=== PATIENT | female | born 1985 | race Caucasian/White ===

== ENCOUNTER → 2019-08-24 | Outpatient (CLI) | payer MEDICAID ==
[~2019-08-24] MED LIST: Docusate Sodium PO; FAMO10TA43 PO; GLYB2.5T4 PO; Hydrocodone Bit/Acetaminophen PO; Ibuprofen PO; Labetalol Hcl PO; PREN1TAB25 PO
--- NOTE | 2019-08-24 11:14 | Diagnostic Imaging Report ---
INDICATION: survey. TECHNIQUE: Multiple real-time grayscale images were obtained over the gravid uterus. COMPARISON: None FINDINGS: There is a single live fetus in a cephalic presentation. heart rate was recorded at 136 BPM. Placenta is anterior. Amniotic fluid volume is normal. Cervical length is 3.8 cm. kidneys, bladder and stomach are unremarkable. brain is unremarkable. There is a three-vessel cord with normal insertion. The four-chamber heart view and spine were limited in evaluation due to position. Biometrical measurements are as follows: Biparietal 4.96 cm, age 21 weeks 1 days. Head circumference 18.90 cm, age 21 weeks 2 days. Abdominal circumference 16.10 cm, age 21 weeks 2 days. Femur length 3.42 cm, age 20 weeks 6 days. Sonographic estimate age: 21 weeks 1 days. Sonographic estimated date of delivery: 01/03/2020. Estimated Weight: 393 gm (+/- 57 gm). LMP percentile: 62%. heart rate: 136 beats per minute. number: 1 of 1. IMPRESSION: Single live IUP 21 weeks 1 day gestational age with an estimated date of confinement sonographically of 01/03/2020. survey is unremarkable although the spine and four-chamber heart view are limited due to position. Dictated by: Dictated on workstation # [id number]
== END ==
LOC: RAD 09:49
PROVIDERS: ATTEND Obstetrics & Gynecology
DX: Z36.9 Encounter for antenatal screening, unspecified (principal); Z3A.21 21 weeks gestation of pregnancy
CPT/HCPCS: 76805

== ENCOUNTER 2019-12-19 09:06 | Outpatient (RCR) | payer MEDICAID ==
[~2019-12-19] VITALS: Ht 162.6 cm; Wt 136.4 kg
[~2019-12-19 09:06] MED LIST changes: +FAMO40TA6 PO; +FERR325T5 PO; +GLYB5TAB6 PO; +PREN-53 PO
== END 2019-12-19 15:48 | disposition home or self-care (01) ==
LOC: PREOP 09:06
PROVIDERS: ATTEND Obstetrics & Gynecology
DX: Z01.818 Encounter for other preprocedural examination (principal); Z11.59 Encounter for screening for other viral diseases
CPT/HCPCS: 87635

== ENCOUNTER 2019-12-22 04:22 | Inpatient (IN) | payer BC, MEDICAID ==
[~2019-12-22] VITALS: Ht 162.6 cm; Wt 138.5 kg
[2019-12-22] VITALS (12 sets, daily range): BP systolic 127–160; BP diastolic 79–100
[~2019-12-22 04:22] MED LIST changes: +CITRIC ACID/SOB CIT (BICITRA) 30 ML UDC ONE; +FAMOTIDINE 20MG/2ML IV (PEPCID) ONE; +METOCLOPRAMIDE INJ 10 MG/2 ML (REGLAN) ONE; +ceFAZolin 2 GM IV Premixed 50 ML ONE
[2019-12-22] MEDS ORDERED: LACTATED RINGERS 1,000 ML IV PRN (05:58)
[2019-12-22] MEDS ORDERED: ceFAZolin 2 GM IV Premixed 50 ML IV ONE (06:00)
[2019-12-22] MEDS ORDERED: CATHETER FLUSH 10 ML SYR IV PRN (06:00)
[2019-12-22] MEDS ORDERED: CITRIC ACID/SOB CIT (BICITRA) 30 ML UDC PO ONE (06:00)
[2019-12-22] MEDS ORDERED: FAMOTIDINE 20MG/2ML IV (PEPCID) IV ONE (06:00)
[2019-12-22] MEDS ORDERED: METOCLOPRAMIDE INJ 10 MG/2 ML (REGLAN) IV ONE (06:00)
--- NOTE | 2019-12-22 06:00 | NUR ---
CAROL MANUEL presented to unit via ambulatory from ED, accompanied by s/o, with c/o PREVIOUS. CAROL MANUEL weighed, gowned, voided, and to bed. EFHM and TOCO applied, VS taken. CAROL MANUEL oriented to bed controls, call light, TV, heat, and A/C controls.
[2019-12-22] MEDS: LACTATED RINGERS 1,000 ML IV PRN ×2 (06:20→07:25)
--- OUTSIDE RECORDS SUMMARY | 2019-12-22 06:36 | XMS REPORT ---
Author Author Greta JEAN [facility] Address [address] [place] [address] Care Team Providers Care Arts Manager Name Role Phone CODEY JEAN Unavailable PROBLEMS Type Condition ICD9-CM Code [id number] Code Onset Dates Condition S tatus SNOMED Code Problem Streptococcal sore throat 034.0 Acti ve 90892801 Problem Carpal tunnel syndrome 354.0 Active 62965379 Problem Polydipsia 783.5 Active 49504540 Problem Urinary frequency 788.41 Active 16 9906549 Problem Other specified visual disturbances 368.8 Active 85085466 Problem Disturbance of skin sensation 782.0 Active [id number] ALLERGIES No Known Allergies ENCOUNTERS Encounter Location Date Diagnosis [facility] [address] [id number] [address] [place] [phone] November, Sore throat J02.9 and Strep throat J02.0 [facility] [id number] [place] [phone] Mar, [facility] [address] [place] [phone] Mar, [facility] [address] [id number] [address] [place] [phone] Jul, IMMUNIZATIONS Vaccine Route Administration Date Status BICILLIN LA/PENICILLIN G BENZATHINE IM Intramuscular December 14 8 Administered SOCIAL HISTORY Never Assessed REASON FOR VISIT sore throat and tired. denies cough. [email or web address] PLAN OF CARE Activity Details Follow Up prn Reason: VITAL SIGNS Height 64 in 2017-12-14 Weight 253.4 lbs 2017-12-14 Temperature 97.4 degrees Fahrenheit 2017-12-14 Heart Rate 88 bpm 2017-12-14 Respiratory Rate 20 2017-12-14 BMI 43.49 kg/m2 2017-12-14 Blood pressure systolic 130 mmHg 2017-12-14 Blood pressure diastolic 80 mmHg 2017-12-14 MEDICATIONS Medication Instructions Dosage Frequency Start Date End Date Duration S tatus Magic Mouthwash buccal 6 times a day 5 ml gargle and spit or swollo w 4h November, November, 3 days Active RESULTS Name Result Date Reference Range STREP A (IN HOUSE) 2017-12-14 STREP A positive Control + Lot # [id number] Exp date 04 11 2020 PROCEDURES Procedure Date Ordered Result Body Site STREP A ASSAY W/OPTIC December 14, 2017 THER/PROPH/DIAG INJ, SC/IM December 14, 2017 BICILLIN LA/PENICILLIN G BENZATHINE December 14, 2017 INSTRUCTIONS MEDICATIONS ADMINISTERED No Known Medications
--- OUTSIDE RECORDS SUMMARY | 2019-12-22 06:36 | XMS REPORT ---
Author Author Greta MARION [facility] Address [address] [place] [address] Care Team Providers Care Bus System Operator Name Role Phone SANAM CHANG Unavailable PROBLEMS Type Condition ICD9-CM Code [id number] Code Onset Dates Condition S tatus SNOMED Code Problem Carpal tunnel syndrome 354.0 Active 02587840 Problem Streptococcal sore throat 034.0 Acti ve 79850458 Problem Urinary frequency 788.41 Active 16 7517341 Problem Polydipsia 783.5 Active 55496849 Problem Disturbance of skin sensation 782.0 Active 303884705 Problem Other specified visual disturbances 368.8 Active [id number] ALLERGIES No Information ENCOUNTERS Encounter Location Date Diagnosis [facility] [address] [place] [phone] November, Strep pharyngitis J02.0 ; Mo rbid obesity E66.01 and Sore throat J02.9 [facility] [address] [id number] [place] [phone] November, Sore throat J02.9 and Strep throat J02.0 [facility] [address] [place] [phone] Mar, [facility] [id number] [place] [phone] Mar, [facility] [id number] [place] [phone] Jul, IMMUNIZATIONS No Known Immunizations SOCIAL HISTORY Never Assessed REASON FOR VISIT PLAN OF CARE VITAL SIGNS Height 64 in 2014-03-30 Weight 209.5 lbs 2014-03-30 Temperature 100.6 degrees Fahrenheit 2014-03-30 Heart Rate 99 bpm 2014-03-30 Respiratory Rate 18 2014-03-30 Blood pressure systolic 138 mmHg 2014-03-30 Blood pressure diastolic 90 mmHg 2014-03-30 MEDICATIONS No Known Medications RESULTS No Results PROCEDURES Procedure Date Ordered Result Body Site INJECTION PCN G KIMBERLI [id number] UNITS Mar 30, 2014 THER/PROPH/DIAG INJ, SC/IM Mar 30, 2014 STREP A ASSAY W/OPTIC Mar 30, 2014 INSTRUCTIONS MEDICATIONS ADMINISTERED No Known Medications MEDICAL (GENERAL) HISTORY Type Description Date Surgical History section
--- OUTSIDE RECORDS SUMMARY | 2019-12-22 06:36 | XMS REPORT | Continuity of Care Document ---
Author Organization Unknown Address Unknown Phone Unavailable Allergies Active Description Code Type Severity Reaction Onset Reported/Identified Relationship to Patient Clinical Status Yes No Known Drug Allergies [id number] Drug Allergy Unknown N/A 10/15/2010 Medications There is no data. Problems Date Dx Coded Attending Type Code Diagnosis Diagnosed By 10/15/2010 Ot 401.9 10/15/2010 Ot 490 10/15/2010 Ot 511.0 10/15/2010 Ot 786.50 04/17/2011 461.9 SINU SITIS ACUTE 04/17/2011 466.0 BRON CHITIS, ACUTE 04/17/2011 V65.42 COU NSELING - SMOKING CESSATION 04/17/2011 CHANG MARION APRN R 461.9 SINUSITIS ACUTE 04/17/2011 CHANG MARION APRN R 466.0 BRONCHITIS, ACUTE 04/17/2011 CHANG MARION APRN R V65.42 COUNSELING - SMOKING CESSATION 08/19/2012 354.0 CARP AL TUNNEL SYNDROME 08/19/2012 368.8 OTHE R SPECIFIED VISUAL DISTURBANCES 08/19/2012 782.0 DIST URBANCE OF SKIN SENSATION 08/19/2012 783.5 POLY DIPSIA 08/19/2012 788.41 URI NARY FREQUENCY 08/19/2012 CHANG MARION APRN R 354.0 CARPAL TUNNEL SYNDROME 08/19/2012 CHANG MARION APRN R 368.8 OTHER SPECIFIED VISUAL DISTURBANCES 08/19/2012 CHANG MARION APRN R 782.0 DISTURBANCE OF SKIN SENSATION 08/19/2012 ANSON MARION APRNIA R 783.5 POLYDIPSIA 08/19/2012 ANSON MARION APRNIA R 788.41 URINARY FREQUENCY 03/30/2014 CHANG MARION APRN R 034.0 STREP THROAT 08/25/2014 KRISTOFER CHRISTENSEN ROLLER INSPECTOR AND MENDER Ot 256.4 08/25/2014 KRISTOFER CHRISTENSEN ROLLER INSPECTOR AND MENDER Ot 648.93 08/25/2014 KRISTOFER CHRISTENSEN ROLLER INSPECTOR AND MENDER Ot 789.03 11/20/2014 KRISTOFER CHRISTENSEN ROLLER INSPECTOR AND MENDER Ot 256.4 11/20/2014 KRISTOFER CHRISTENSEN ROLLER INSPECTOR AND MENDER Ot 648.93 11/20/2014 KRISTOFER CHRISTENSEN ROLLER INSPECTOR AND MENDER Ot 789.03 11/20/2014 KRISTOFER CHRISTENSEN A ROLLER INSPECTOR AND MENDER Ot 256.4 11/20/2014 KRISTOFER CHRISTENSEN ROLLER INSPECTOR AND MENDER Ot 648.93 11/20/2014 KRISTOFER CHRISTENSEN ROLLER INSPECTOR AND MENDER Ot 789.03 12/14/2014 KRISTOFER CHRISTENSEN ROLLER INSPECTOR AND MENDER Ot 256.4 12/14/2014 KRISTOFER CHRISTENSEN ROLLER INSPECTOR AND MENDER Ot 648.93 12/14/2014 KRISTOFER CHRISTENSEN ROLLER INSPECTOR AND MENDER Ot 789.03 12/21/2014 KRISTOFER CHRISTENSEN ROLLER INSPECTOR AND MENDER Ot 256.4 12/21/2014 KRISTOFER CHRISTENSEN ROLLER INSPECTOR AND MENDER Ot 648.93 12/21/2014 KRISTOFER CHRISTENSEN ROLLER INSPECTOR AND MENDER Ot 789.03 01/01/2015 LINDA DOKAMRYN Ot 278.00 01/01/2015 FENECH DOKAMRYN Ot 649.13 01/01/2015 FENECH DOKAMRYN Ot 278.00 01/01/2015 FENECH DOKAMRYN Ot 649.13 01/07/2015 CHRISTENSENKRISTOFER BRIGHT ROLLER INSPECTOR AND MENDER Ot 256.4 01/07/2015 KRISTOFER CHRISTENSEN ROLLER INSPECTOR AND MENDER Ot 648.93 01/07/2015 KRISTOFER CHRISTENSEN ROLLER INSPECTOR AND MENDER Ot 789.03 01/15/2015 FENECH DOKAMRYN Ot 278.00 01/15/2015 FENECH DOKAMRYN Ot 649.13 02/26/2015 FENECH DOKAMRYN Ot 278.00 02/26/2015 FENECH DOKAMRYN Ot 649.13 03/02/2015 THIERRYECH KAMRYN MELCHOR Ot 278.01 MORBID OBESITY 03/02/2015 THIERRYECH KAMRYN MELCHOR Ot 642.61 ECLAMPSIA-DELIVERED 03/02/2015 THIERRYECH KAMRYN MELCHOR Ot 648.81 ABN GLUCOSE JEREMIAH-DELIV 03/02/2015 THIERRYECH DOKAMRYN Ot 649.11 OBESITY COMP PREG/CHILDBIRTH/PUERPERIUM, 03/02/2015 FENKAMRYN LITTLE DO Ot 653.41 FETOPELV DISPROPOR-DELIV 03/02/2015 KAMRYN MCKEON DO Ot 656.61 EXCESS GRTH-DELIV 03/02/2015 KAMRYN MCKEON DO Ot 660.11 BONY PELV OBSTRUCT-DELIV 03/02/2015 THIERRYSIDNEY KAMRYN MELCHOR Ot V06.1 [id number], COMBINED [ 03/02/2015 KAMRYN MCKEON DO Ot V27.0 DELIVER-SINGLE LIVEBORN 03/02/2015 LINDA MELCHOR, KAMRYN Aceves Ot V85.43 BODY MASS INDEX 50.0-59.9, ADULT 07/02/2019 KAMRYN MCKEON DO Ot 278.00 OBESITY, NOS 07/02/2019 THIERRYECH DOKAMRYN Ot 649.13 OBESITY COMP PREG/CHILDBIRTH/PUERPERIUM, 08/24/2019 THIERRYECH KAMRYN MELCHOR Ot 278.00 OBESITY, NOS 08/24/2019 THIERRYECH DO, KAMRYN Aceves Ot 649.13 OBESITY COMP PREG/CHILDBIRTH/PUERPERIUM, 08/25/2019 THIERRYECH DO, KAMRYN Aceves Ot Z36.9 ENCOUNTER FOR SCREENING, UNSPE 08/25/2019 THIERRYECH DO, KAMRYN Aceves Ot Z3A.21 21 WEEKS GESTATION OF 08/26/2019 THIERRYECH DO, KAMRYN S Ot Z36.9 ENCOUNTER FOR SCREENING, UNSPE 08/26/2019 THIERRYECH DO, KAMRYN Aceves Ot Z3A.21 21 WEEKS GESTATION OF 08/29/2019 THIERRYECH DOKAMRYN Ot Z36.9 ENCOUNTER FOR SCREENING, UNSPE 08/29/2019 THIERRYECH DOKAMRYN Ot Z3A.21 21 WEEKS GESTATION OF 08/29/2019 THIERRYECH DO, KAMRYN S Ot Z36.9 ENCOUNTER FOR SCREENING, UNSPE 08/29/2019 FENECH DO, KAMRYN S Ot Z3A.21 21 WEEKS GESTATION OF 08/29/2019 FENECH DO, KAMRYN S Ot Z36.9 ENCOUNTER FOR SCREENING, UNSPE 08/29/2019 THIERRYECH DO, KAMRYN S Ot Z3A.21 21 WEEKS GESTATION OF Procedures Code Description [place] [address] A1C (IN-HOUSE) 08/19/2012 25201 STRE P A (IN-HOUSE) 03/30/2014 62753 THER APUTIC INJ SQ/IM 03/30/2014 J0561 BICI LLIN LA/PENICILLIN G BENZATHINE INJ 03/30/2014 73.4 MEDIC AL INDUCTION LABOR 02/26/2015 74.1 LOW C ERVICAL 02/27/2015 Results Test Result Range Coronavirus SARS-CoV-2 SO 2018 - 0 13:10 Coronavirus Ab [Units/volume] in Serum Negative Negative Encounters ACCT No. Visit Date/Time Discharge Status Pt. Type Provider Facility Loc./Unit Complaint [id number] 12/21/2018 15:10:00 12/21/2018 23:59:5 9 CLS Outpatient [facility] [id number] 12/19/2019 09:06:00 020 15:48:00 DIS Outpatient KAMRYN MCKEON DO [facility] PREOP PREVIOUS [id number] 08/24/2019 09:49:00 020 23:59:59 CLS Outpatient KAMRYN MCKEON DO [facility] RAD [id number] 06/27/2019 13:49:00 019 23:59:59 CLS Preadmit SALTY FONTAINE MD [facility] CARD HTN [id number] 02/26/2015 11:00:00 015 17:25:00 DIS Inpatient KAMRYN MCKEON DO [facility] LDRP INDUCTION HTN,PROTEIN I N URINE [id number] 12/21/2014 15:16:00 015 23:59:59 CLS Outpatient KAMRYN MCKEON DO [facility] RAD INCOMPLETE VIEWS [id number] 07/30/2014 13:19:00 015 23:59:59 CLS Outpatient KRISTOFER CHRISTENSEN [facility] RAD [id number] 12/22/2019 07:30:00 P EN Preadmit KAMRYN MCKEON DO PREVIOUS [id number] 10/15/2010 18:31:00 Document Registration [id number] 03/30/2014 12:14:00 03/30/2014 23:59: 59 CLS Outpatient CHANG MARION APRN [id number] 08/19/2012 15:09:00 08/19/2012 23:59: 59 [facility] Outpatient
--- OUTSIDE RECORDS SUMMARY | 2019-12-22 06:36 | XMS REPORT ---
Author Author StumbleUpon sweatband drummer [facility] [employer] banner [facility] Address [address] [address] Care Team Providers Care Data Warehouse Administrator Name Role Phone ALICE FIELDS Justine Unavailable CODEY JEAN Unavailable CHANG MARION Unavailable PCP, NONE Unavailable Unavailable KAMRYN GRAF DO Unavailable Unavailable KAMRYN GRAF DO Unavailable Unavailable DO Ketan GRAF PCP Unavailable Unavailable Unavailable Unavailable Unavailable Unavailable Unavailable Unavailable Unavailable Unavailable Allergies The data below is from unstructured sources Allergen Type Severity Reaction Status Last Updated No Known Drug Allergies Active 10/15/10 No known allergies. Medications Current Medications Medication Ingredient Drug Dose Dates Status Sig Sig Care Class(es) (Normalized) (Original) Provid er ferrous ferrous no Active no Ferrous no sulfate 325 sulfate information information Sulfate name mg delayed Active 325 release ORAL Daily oral tablet (1 source.) no Ukt056/Iron no Active no Xmp887/Iron no information Fumarate/Fa information information Fumarate/Fa/ name (1 source.) /Dss Dss Active 1 ORAL Daily Completed/Discontinued Medications Medication Ingredient Drug Dose Dates Status Sig Sig Care Class(es) (Normalized) (Original) Provid er no Docusate no 02-29-20 Complete no Docusate no information information 15 - d information Sodium name (1 source.) 12-14-19 Discontinued 20 100 ORAL Twice A Day as needed for Constipation 40 February 28, 2015 7:12am December 14, 2019 no Hydrocodone no 02-29-20 Complete no Hydrocodone n o information Bit/Acetami information 15 - d information Bi t/Acetamin name (1 source.) nophen 12-14-19 ophen 20 Discontinued 1-2 ORAL Every 6 Hours as needed for Pain 50 February 28, 2015 7:12am December 14, 2019 Problems Problem Normalized Date Last Normalized Normalized Provider Fa cility Classification Problem(s) Recorded Problem Problem Sta tus Duration Residual 21 weeks Episodic Active KAMRYN GRAF [facility] Via codes; gestation of , DO [facility] unclassified Hospital - (5 sources.) [place] ([id number]) Diabetes or Abnormal Episodic Active KAMRYN LINDA [facility] Vi a abnormal glucose , DO [facility] glucose tolerance of Hospital - tolerance mother, [place] complicating delivered, ([address]96) ; with or childbirth; or without the puerperium mention of (3 sources.) antepartum condition Translations: [ Gestational diabetes mellitus (GDM)] Other Body Mass Chronic Active KAMRYN FENSIDNEY [facility] Via nutritional; Index , DO [facility] endocrine; and 50.0-59.9, Hospital - metabolic adult [place] disorders (2 (28947) sources.) Hypertension Eclampsia, Episodic Active KAMRYN GRAF [facility] Via complicating delivered, , DO [facility] ; with or Hospital - childbirth and without [place] the puerperium mention of (52859) (2 sources.) antepartum condition Other Encounter for Episodic Active KAMRYN GRAF [facility] Via screening for , DO [facility] suspected screening, Hospital - conditions unspecified [place] (not mental (53830) disorders or infectious disease) (5 sources.) Other Excessive Episodic Active KAMRYN GRAF [facility] Via complications growth, , DO [facility] of affecting Hospital - (2 sources.) management of [place] mother, ([address]) delivered, with or without mention of antepartum condition Residual H/O: Episodic Active DO KAMRYN Phelpsi on Via codes; section [place] [id number] [facility] unclassified (Work Phone: Hospital (1 source.) ([phone]) ) Other Morbid Chronic Active CHANG [facility] nutritional; (severe) SANAM [address] [place] [address] endocrine; and obesity due to of [facility] metabolic excess [place] ([address]) disorders (1 calories source.) Translations: [ - Morbid obesity E66.01] Other Morbid obesity Chronic Active KAMRYN GRAF [facility] Via nutritional; , DO [facility] endocrine; and Hospital - metabolic [place] disorders (2 (48880) sources.) Immunizations Need for 12-20-2019 - Episodic Active KAMRYN FE NECH [facility] Via and screening prophylactic , DO [place] for infectious vaccination Hospital - disease (3 and [place] sources.) inoculation (60746) against diphtheria-tet anus-pertussis , combined [DTP] [DTaP] Translations: [ ENCOUNTER FOR SCREENING FOR OTHER VIRAL ] Other Obesity Chronic Active KAMRYN FENECH [facility] Via complications complicating , DO [facility] of , Hospital - (2 sources.) childbirth, or [place] the (80775) puerperium, antepartum condition or complication Other Obesity Chronic Active KAMRYN FENECH [facility] Via complications complicating , DO [facility] of ; , Hospital - puerperium childbirth, or [place] affecting the (15804) management of puerperium, mother (2 delivered, sources.) with or without mention of antepartum condition Other Obesity, Chronic Active KAMRYN FENECH [facility] Via nutritional; unspecified , DO [facility] endocrine; and Hospital - metabolic [place] disorders (2 (01781) sources.) Fetopelvic Obstruction by Episodic Active KAMRYN FENECH [facility] Via disproportion; bony pelvis , DO [facility] obstruction (4 during labor, Hospital - sources.) delivered, [place] with or (56775) without mention of antepartum condition Translations: [ FETOPELV DISPROPOR-DELI V] Other Outcome of Episodic Active KAMRYN FENECH [facility] Vi a and delivery, , DO [facility] delivery single Hospital - including liveborn [place] normal (2 (29400) sources.) Procedures Procedure Normalized Procedure Procedure Result Performer Facility Date 03-30-2014 [place] no information no name [facility] ealt streptococcus group a [facility] ([id number]) 02-27-2015 Low cervical no information no name [facility] section [facility] ([id number]) 02-26-2015 Medical induction of no information no name [facility] Via [facility] labor [facility] ([id number]) 03-30-2014 Penicillin g no information no name [facility] benzathine inj [facility] ([id number]) 03-30-2014 Therapeutic no information no name [facility] prophylactic/dx [facility] injection subq/im [place] ([id number]) Immunizations The data below is from unstructured sources Immunization Event Date Not Given Reason Dose Number Trumpet Teacher Lot Number Vaccine Information Statement (VIS) Deta il Results Test Name Value Interpretation Reference Range Date Time Fa cility (Normalized) (Normalized) (Medline Reference) laboratory on 2019-12-19 Coronavirus Ab Negative (no code) 12-19-2019 PENDING LOC ATION Qn (S) 09:0 [facility] ([id number]) not yet categorized on 2018-12-21 Exp date +~418A21~02/23/20 (no code) [facility] ([id number]) Exp date Positive (no code) [facility] ([id number]) other on 2017-12-14 Control Positive (no code) [facility] ([id number]) Exp date 04 11 2020 (no code) [facility] ([id number]) Lot # [id number] (no code) [facility] ([id number]) Vital Signs Vital Sign Value Interpretation Reference Date Time Care Prov ider Facility (Normalized) (Normalized) Range Body 100.6 [degF] (no code) 97.8 - 99.0 03-30-2014 [facility] Temperature [degF] 13:14-[address] ([id number]) Body weight 95.03 kg (no code) kg 03-30-2014 CHANG Com munity 13:14-[address] ([id number]) Height 162.56 cm (no code) cm 03-30-2014 CHANG Commu nity 13:14-[address] ([id number]) Interventions No Information Plan of Treatment Normalized Care Care Detail Care Activity Date Care Provider F acility Activity Coronavirus Ab Qn no information no information DO KAMRYN PENA Sully Via [phone] (Work Phone: [facility] ) ([id number]) Goals Patient Goal Desired Goal no information no information Social History Normalized Code Original Code Date Value Tobacco smoking status Tobacco smoking status no information Never smoked tobacco NHIS NHIS (finding) no information no information 02-26-2015 Denies Use no information no information 02-26-2015 No no information no information 12-14-2019 Never a Smoker Sex Assigned At Sex Assigned At no information F emale Functional Status The data below is from unstructured sources Query Response Date Lefty rded Patient Orientation Person Place Time Situation March 02, 2015 6:02pm Comprehension Ability Understands Co ncepts March 01, 2015 9:00am No Functional Status information available Mental Status The data below is from unstructured sourcesNo Mental Status Information Available Encounters Encounter Normalized Encounter Encounter Diagnosis Care Provi roddy Organization Date Type 12-21-2018 [facility] Streptococcal TAURUS HUNCHERIKER (n o [facility] pharyngitis phone) CARE (no phone) 12-19-2019 Discharged Recurring no information (no phone) As cension Via [facility] (no phone) 12-19-2019 12-22-2019 Evaluation and no information KAMRYN GRAF DO [facility] management of (no phone) [facility] inpatient (no phone) 12-14-2017 Patient encounter no information no name no or ganization name 12-19-2019 Patient encounter no information KAMRYN Rosales [facility] Via [facility] - procedure (no phone) [facility] [place] 12-19-2019 (no phone) 12-14-2019 Patient encounter no information KAMRYN Rosales [facility] Via [facility] procedure (no phone) [facility] (no phone) 08-24-2019 Patient encounter no information no name no or ganization name procedure 12-21-2018 Patient encounter no information no name no or ganization name procedure 12-21-2018 Patient encounter no information no name no or ganization name procedure 12-21-2014 Patient encounter no information no name no or ganization name procedure no information Encounter for other no name (no phone) preprocedural examination Medical Equipment The data below is from unstructured sourcesNo Medical Equipment Information available Payers Normalized Payer Value Private Health Insurance no information ([id number]) Evaluation note Note Type Note Facility Evaluation No Assessments Information Available A scension note Via [facility] ([id number]) Advance Directives Directive Response Recor ded Date/Time Advance Directives No 1:44pm Health Care Power of Disbursing Officer No 02/26/15 1:44pm Organ Donor Yes 02/26/15 1:44pm Resuscitation Status Full Code 02/26/15 1:44pm Advance Directive Response Recorded Date/Time Advance Directives No Ma 2019 4:38pm Health Care Power of Disbursing Officer No December 14, 2019 4:33pm Organ Donor Yes November 4:33pm Resuscitation Status Full Code December 14, 2019 4:38pm Discharge Instructions Patient Instructions Physician Instructions New, Converted or Re-Newed RX: RX on Chart Additional Follow Up: Yes Orders/Referrals Dr. Graf in 1 week, and Dr. Caban in 6 weeks Activity: Activity as Tolerated Driving Instructions: No Driving for 1 Week NO SMOKING: NO SMOKING Nothing Inside Vagina: No Douching, No Andrew, No Tampons Discharge Diet: No Restrictions Symptoms to Report to : Bleeding Excessive, Pain Increased, Fever Over 101 Degrees F, Vaginal Bleeding Increase, Questions/Concerns For Any Problems or Questions: Contact Your Physician Infection Signs and Symptoms: Increased Redness, Foul Odor of Wound, Increased Drainage, Skin Itchy or Has a Rash, Increased Swelling, Temperature Above 101 F Operative Area Clean and Dry: Keep Incision Clean/Dry Stitches/Luann/Dermabond: Dermabond, Care of Stitches Bathing Instructions: Shower Additional Source Comments This clinical document has been generated using Portero software that has been certified by the Office of the National Coordinator for Health Information Technology (ONC 15.99.04.3023.Diam.31.00.0.755523) and the National Committee for Supervisor Prop Making (NCQA, as an eMeasure certified technology). FOR RECORDS PERTAINING TO PATIENTS WHO ARE OR HAVE BEEN ENROLLED IN A CHEMICAL D EPENDENCY/SUBSTANCE ABUSE PROGRAM, SOME INFORMATION MAY BE OMITTED. This clinica l summary was aggregated from multiple sources. Caution should be exercised in using it in the provision of clinical care. This summary normalizes information from multiple sources, and as a consequence, information in this document may ma terially change the coding, format and clinical context of patient data. In yo tion, data may be omitted in some cases. CLINICAL DECISIONS SHOULD BE BASED ON T HE PRIMARY CLINICAL RECORDS. [employer] provides no warranty or guara ntee of the accuracy or completeness of information in this document.The followi ng information is based on time limited clinical information UNRECOGNIZED CONTENT PROVIDED BELOW FOR UNRECOGNIZED SECTION MEDICAL (GENERAL) HISTORY Type Description Date Surgical History section
[2019-12-22 06:45] LABS: BASOPHILS % (AUTO) 0 % (0-10); EOSINOPHILS # (AUTO) 0.1 10^3/uL (0.0-0.3); EOSINOPHILS % (AUTO) 1 % (0-10); HEMATOCRIT 36 % (35-52); LYMPHOCYTES % (AUTO) 23 % (12-44); MEAN CORPUSCULAR HEMOGLOBIN 29 PG (25-34); MEAN CORPUSCULAR HGB CONC 33 G/DL (32-36); MEAN CORPUSCULAR VOLUME 87 FL (80-99); MEAN PLATELET VOLUME 11.8 FL (7.4-10.4); MONOCYTES # (AUTO) 0.8 X 10^3 (0.0-1.0); MONOCYTES % (AUTO) 9 % (0-12); NEUTROPHILS # (AUTO) 5.8 X 10^3 (1.8-7.8); NEUTROPHILS % (AUTO) 67 % (42-75); PLATELET COUNT 173 10^3/uL (130-400); RED CELL DISTRIBUTION WIDTH 14.3 % (10.0-14.5); WHITE BLOOD COUNT 8.7 10^3/uL (4.3-11.0)
[2019-12-22 06:47] LABS: CLARITY,URINE CLOUDY; COLOR,URINE ORANGE; GLUCOSE, URINE (UA) NEGATIVE (NEGATIVE); KETONES,URINE 1+ (NEGATIVE); LEUKOCYTE ESTERASE ,URINE NEGATIVE (NEGATIVE); NITRITE,URINE NEGATIVE (NEGATIVE); PH,URINE 6.5 (5-9); PROTEIN,URINE 2+ (NEGATIVE)
[2019-12-22] MEDS ORDERED: OXYTOCIN PRE-MIX DRIP 1,000 ML IV ONE (06:57)
[2019-12-22] MEDS ORDERED: BUPIVACAINE 0.5% 30 ML (SENSORCAINE) VIAL ONE (06:57)
[2019-12-22 06:58] LABS: ALBUMIN 3.1 GM/DL (3.2-4.5)
[2019-12-22] MEDS ORDERED: fentaNYL INJECTION 100 MCG/2 ML AMP ONE (06:58)
[2019-12-22 06:59] LABS: CHLORIDE 108 MMOL/L (98-107); POTASSIUM 4.1 MMOL/L (3.6-5.0); SODIUM 136 MMOL/L (135-145)
[2019-12-22 07:00] LABS: CALCIUM 8.6 MG/DL (8.5-10.1)
[2019-12-22 07:01] LABS: GLUCOSE 100 MG/DL (70-105); TOTAL PROTEIN 6.1 GM/DL (6.4-8.2)
[2019-12-22 07:02] LABS: CARBON DIOXIDE 18 MMOL/L (21-32)
[2019-12-22 07:03] LABS: BACTERIA,URINE FEW /HPF; BILIRUBIN,URINE 1+ (NEGATIVE)
[2019-12-22 07:03] LABS: BILIRUBIN,TOTAL 0.3 MG/DL (0.1-1.0)
[2019-12-22 07:04] LABS: ALKALINE PHOSPHATASE 164 U/L (40-136); CREATININE SERUM 0.75 MG/DL (0.60-1.30); GFR ESTIMATED > 60
[2019-12-22 07:05] LABS: BUN/CREATININE RATIO 16
[2019-12-22 07:07] LABS: ALANINE AMINOTRANSFERASE 24 U/L (0-55)
[2019-12-22] MEDS ORDERED: MEASLES,MUMPS,RUBELLA 1 EA INJ SC SCH (07:15)
[2019-12-22] MEDS ORDERED: ONDANSETRON 4 MG/2 ML (SDV) Z0FRAN IVP PRN (07:15)
[2019-12-22] MEDS ORDERED: TETANUS,DIPTH,PERTUSS P/F (BOOSTRIX) 0.5 ML VIAL IM SCH (07:15)
--- NOTE | 2019-12-22 07:26 | History & Physical-OB ---
OB - Chief Complaint & HPI Date/Time Date of Admission: Date of Admission: December 22, 2019 at 05:47 Date seen by a Provider: December 22, 2019 Time Seen by a Provider: 07:00 Chief Complaint/History OB-Reason for Admission/Chief: Section Hx : 2 Hx Para: 1 Expected Date of Delivery: Jan 05, 2020 Gestational Age in Weeks: 38 Gestational Age in Days: 0 Indication for : desires repeat Admission Nurse Assessment Rev: Yes History of Labs see prenatals Allergies and Home Medications Allergies Coded Allergies: No Known Drug Allergies (Unverified , 10/15/10) Home Medications Famotidine 40 Mg Tablet, 40 MG PO HS, (Reported) Ferrous Sulfate 325 Mg Tablet.dr, 325 MG PO DAILY, (Reported) Glyburide 2.5 Mg Tablet, 2.5 MG PO DAILY, (Reported) Glyburide 5 Mg Tablet, 5 MG PO HS, (Reported) [id number]/Iron Fumarate/FA/Dss 1 Each Tablet, 1 EACH PO DAILY, (Reported) Patient Home Medication List Home Medication List Reviewed: Yes OB - History Hx of Present Care: Yes Ultrasounds: Abnormal US findings (LGA) Obstetrical Complications: Gestational Diabetes (poor control on max dose of PO glyburide) Medical Complications: None Delivery History Hx Blood Disorders: No Adverse Rxn to Tranfusion: No Patient Past Medical History obesity Social History/Family History Recent Infectious Disease Expo: No Alcohol Use: Denies Use Recreational Drug Use: No Immunizations Hepatitis A: Yes Hepatitis B: Yes Tetanus Booster (TDap): Less than 5yrs OB - Admission Exam Physical Exam Vitals: Vital Signs 12/22/19 12/22/19 07:00 07:07 Temp 36.8 Pulse 90 Resp 18 B/P (MAP) 143/90 (107) Pulse Ox 97 O2 Delivery Room Air HEENT: NCAT Heart: Rhythm Normal Lungs: Clear Abdomen: Gravid Extremities: Normal Reflexes: Normal Heart Rate: 130's Discharge Coordinator Variability: Average (6-25) Contractions on Admission: >10 Minutes Apart Intensity: Mild Labs Laboratory Tests Test 12/22/19 06:05 12/22/19 06:25 Range/Units Urine Color ORANGE Urine Clarity CLOUDY Urine pH 6.5 5-9 Urine Specific [place] 1.025 H 1.016-1.022 Urine Protein 2+ H NEGATIVE Urine Glucose (UA) NEGATIVE NEGATIVE Urine Ketones 1+ H NEGATIVE Urine Nitrite NEGATIVE NEGATIVE Urine Bilirubin 1+ H NEGATIVE Urine Urobilinogen 0.2 < = 1.0 MG/DL Urine Leukocyte Esterase NEGATIVE NEGATIVE Urine RBC (Auto) NEGATIVE NEGATIVE Urine RBC NONE /HPF Urine WBC NONE /HPF Urine Squamous Epithelial Cells 10-25 H /HPF Urine Crystals NONE /LPF Urine Bacteria FEW H /HPF Urine Casts NONE /LPF Urine Mucus NEGATIVE /LPF Urine Culture Indicated NO White Blood Count 8.7 4.3-11.0 10^3/uL Red Blood Count 4.12 L 4.35-5.85 10^6/uL Hemoglobin 12.0 11.5-16.0 G/DL Hematocrit 36 35-52 % Mean Corpuscular Volume 87 80-99 FL Mean Corpuscular Hemoglobin 29 25-34 PG Mean Corpuscular Hemoglobin Concent 33 32-36 G/DL Red Cell Distribution Width 14.3 10.0-14.5 % Platelet Count 173 130-400 10^3/uL Mean Platelet Volume 11.8 H 7.4-10.4 FL Neutrophils (%) (Auto) 67 42-75 % Lymphocytes (%) (Auto) 23 12-44 % Monocytes (%) (Auto) 9 0-12 % Eosinophils (%) (Auto) 1 0-10 % Basophils (%) (Auto) 0 0-10 % Neutrophils # (Auto) 5.8 1.8-7.8 X 10^3 Lymphocytes # (Auto) 2.0 1.0-4.0 X 10^3 Monocytes # (Auto) 0.8 0.0-1.0 X 10^3 Eosinophils # (Auto) 0.1 0.0-0.3 10^3/uL Basophils # (Auto) 0.0 0.0-0.1 10^3/uL Sodium Level 136 135-145 MMOL/L Potassium Level 4.1 3.6-5.0 MMOL/L Chloride Level 108 H 98-107 MMOL/L Carbon Dioxide Level 18 L 21-32 MMOL/L Anion Gap 10 5-14 MMOL/L Blood Urea Nitrogen 12 7-18 MG/DL Creatinine 0.75 0.60-1.30 MG/DL Estimat Glomerular Filtration Rate > 60 BUN/Creatinine Ratio 16 Glucose Level 100 70-105 MG/DL Calcium Level 8.6 8.5-10.1 MG/DL Corrected Calcium 9.3 8.5-10.1 MG/DL Total Bilirubin 0.3 0.1-1.0 MG/DL Aspartate Amino Transf (AST/SGOT) 20 5-34 U/L Alanine Aminotransferase (ALT/SGPT) 24 0-55 U/L Alkaline Phosphatase 164 H 40-136 U/L Total Protein 6.1 L 6.4-8.2 GM/DL Albumin 3.1 L 3.2-4.5 GM/DL OB - Assessment/Plan/Diagnosis Assessment Assessment: section Admission Dx 34 yo @ 38 weeks GDMA 2 poor control on glyburide Previous Admission Status: Inpatient Order (span 2 midnights) Reason for Inpatient Admission: Repeat Plan Plan: Section KAMRYN MCKEON DO December 22, 2019 07:26
[2019-12-22] MEDS ORDERED: HYDR-83 PO (07:28)
[2019-12-22] MEDS ORDERED: DCS100C PO (07:28)
[2019-12-22] MEDS ORDERED: IBUP-844 PO (07:28)
--- NOTE | 2019-12-22 07:30 | Discharge Inst-Women's Service ---
Discharge Inst-Women's Serv Depart Medication/Instructions New, Converted or Re-Newed RX: RX on Chart Final Diagnosis POD 2 RLTCS Problems Reviewed?: Yes Consults/Follow Up Additional Follow Up: Yes Orders/Referrals Dr. Graf in 7-10 days and in 6 weeks Activity Activity: Activity as Tolerated Driving Instructions: No Driving for 1 Week NO SMOKING: NO SMOKING Nothing Inside Vagina: No Douching, No [place], No Tampons Diet Discharge Diet: No Restrictions Symptoms to Report to : Bleeding Excessive, Pain Increased, Fever Over 101 Degrees F, Vaginal Bleeding Increase, Questions/Concerns For Any Problems or Questions: Contact Your Physician Skin/Wound Care Infection Signs and Symptoms: Increased Redness, Foul Odor of Wound, Increased Drainage, Skin Itchy or Has a Rash, Increased Swelling, Temperature Above 101 F Operative Area Clean and Dry: Keep Incision Clean/Dry Stitches/Luann/Dermabond: Care of [place] Bathing Instructions: KAMRYN Mosquera DO December 22, 2019 07:29
[2019-12-22] MEDS ORDERED: PHENYLEPHRINE 100 MCG/ML 10 ML (ANESTHESIA) SYR ONE (08:01)
[2019-12-22] MEDS: KETOROLAC 30 MG/ML VIAL IV SCH ×4 (08:30→21:49)
[2019-12-22] MEDS: OXYTOCIN PRE-MIX DRIP 500 ML IV SCH ×2 (08:34→14:28)
--- NOTE | 2019-12-22 09:24 | NUR ---
F/C dc'd. 200cc urine noted. FFu/1. moderate rubra noted. renetta-care offered. v-pad in place.
--- NOTE | 2019-12-22 09:34 | NUR ---
pt transferred to room 308 via bed with this RN, s/o and infant @ side. call light within reach. ice water served.
--- NOTE | 2019-12-22 09:41 | NUR ---
report given to JOSE Ramirez.
[2019-12-22] MEDS: DOCUSATE SODIUM 100 MG (COLACE) CAP PO SCH ×2 (10:55→20:18)
--- NOTE | 2019-12-22 13:35 | OPERATIVE REPORT ---
DATE OF SERVICE: PREOPERATIVE DIAGNOSES: 1. A 34-year-old G2, P1 at 38 weeks' gestation. 2. Previous section. 3. Gestational diabetes White classification A2, poorly controlled. 4. Morbid obesity, BMI greater than 50. POSTOPERATIVE DIAGNOSES: 1. A 34-year-old G2, P1 at 38 weeks' gestation. 2. Previous section. 3. Gestational diabetes White classification A2, poorly controlled. 4. Morbid obesity, BMI greater than 50. PROCEDURE: Repeat low transverse section. SURGEON: Rob Mckeon DO BALL MAKER: Bhavani Interiano DNP, who was necessary for vital manipulation and retraction throughout the procedure. ANESTHESIA: Spinal. ESTIMATED BLOOD LOSS: 600 mL. URINE OUTPUT: 100 mL clear at the end of the procedure. FLUIDS: 2000 mL lactated Ringer's solution. FINDINGS: A live male infant weighing 9 pounds 8 ounces, Apgars of 8 and 9. SPECIMEN SENT: Placenta. INDICATIONS FOR PROCEDURE: This 34-year-old female is a patient who had sought care in my office. Her was complicated by her morbid obesity as well as uncontrolled gestational diabetes. Towards the last few visits, she was having better controlled with a maximum dose of glyburide to control her diabetes. Ultrasound remained reassuring, so we did wait until delivery at 38 weeks, at which point, I discussed with the patient repeat . Risks of procedure were discussed with the patient in detail. After all of her questions were answered, consent was obtained in the preoperative area and the patient was taken to the operating room. OPERATIVE REPORT IN DETAIL: Once in the operating room, anesthesia was found to be adequate, placed in supine position with leftward tilt, prepped and draped in normal sterile fashion. Timeout was performed and anesthesia was tested. I then make a Pfannenstiel skin incision through the previously existing scar using knife and carried down to the underlying fascia using Bovie cautery. Superior aspect of fascial incision was then grasped with Karly clamps, tented up and dissected off the underlying rectus muscles. The inferior aspect of the fascial incision was then grasped with Karly clamps, tented up and dissected off the underlying rectus muscles. The rectus muscle was then dissected down the midline using Desouza scissors, which exposed the peritoneum, which entered bluntly and extended using blunt traction. An Ryan ring retractor was placed in the peritoneal incision, which offers excellent lateral sidewall retraction. I then proceeded with identifying the lower uterine segment. I made a low transverse incision through the vesicouterine peritoneum and I dissected off the lower uterine segment. I proceeded with my myotomy until membranes were visualized, at which point, I extended the uterine incision laterally and superiorly using bandage scissors. Amniotomy was then performed using an Allis clamp. Clear fluid was noted. The infant was found in the vertex presentation. With gentle fundal pressure, the 's head was elevated up to the incision and delivered through the incision where the nares and oropharynx were bulb suctioned. Anterior and posterior shoulders were delivered. was then brought to the operative field. The cord doubly clamped and cut and infant was handed off to waiting nurses in attendance. Cord blood was collected. Three-vessel cord with intact placenta, was delivered spontaneously thereafter. IV Pitocin was initiated to facilitate uterine contraction. Uterine fundus became firmer with bimanual massage. The uterus was exteriorized and cleared of all endometrial clots and debris. I then proceeded with closing the uterine incision using 0 Vicryl suture in running locked fashion. A second layer of imbricating 0 Monocryl was placed. Excellent hemostasis was noted after during this and I placed uterus back in the pelvis, copiously irrigated the pelvis using normal saline. There was no active bleeding noted from any of my dissection planes. I placed Interceed antiadhesive over my low transverse incision and removed the Ryan ring retractor. I then proceeded with closing the peritoneum and rectus muscles in one single layer using 0 Vicryl suture in a running fashion. The fascia was reapproximated using 0 Vicryl suture in running fashion. Subcutaneous tissue was reapproximated using 3-0 plain interrupted subcutaneous stitch and skin reapproximated using meagan. Sterile dressing is adhesive white tape. The patient tolerated the procedure well and sent to recovery in stable condition. Lap and sponge counts were correct at the end of the procedure. Instrument counts correct as well. Two grams of Ancef were given preoperatively for infection prophylaxis. Job ID: [id number] DocumentID: [id number] Dictated Date: 12/22/2019 08:52:33 Media Planner Date: 12/22/2019 13:34:28 Dictated By: ROB MCKEON DO
[2019-12-22] MEDS: CATHETER FLUSH 10 ML SYR IV SCH ×2 (14:00→18:45)
[2019-12-22] MEDS: HYDROcodone/APAP 5 MG/325 MG (LORTAB) TAB PO PRN (16:11)
[2019-12-23 04:20] VITALS: BP 161/96
[2019-12-23] MEDS: KETOROLAC 30 MG/ML VIAL IV SCH (04:21)
[2019-12-23 05:59] LABS: BASOPHILS % (AUTO) 0 % (0-10); EOSINOPHILS # (AUTO) 0.1 10^3/uL (0.0-0.3); EOSINOPHILS % (AUTO) 1 % (0-10); HEMATOCRIT 34 % (35-52); HEMOGLOBIN 11.2 G/DL (11.5-16.0); LYMPHOCYTES # (AUTO) 2.1 X 10^3 (1.0-4.0); LYMPHOCYTES % (AUTO) 27 % (12-44); MEAN CORPUSCULAR HEMOGLOBIN 29 PG (25-34); MEAN CORPUSCULAR HGB CONC 33 G/DL (32-36); MEAN CORPUSCULAR VOLUME 88 FL (80-99); MEAN PLATELET VOLUME 11.6 FL (7.4-10.4); MONOCYTES # (AUTO) 0.6 X 10^3 (0.0-1.0); MONOCYTES % (AUTO) 7 % (0-12); NEUTROPHILS % (AUTO) 64 % (42-75); PLATELET COUNT 179 10^3/uL (130-400); RED CELL DISTRIBUTION WIDTH 14.2 % (10.0-14.5); WHITE BLOOD COUNT 7.8 10^3/uL (4.3-11.0)
--- NOTE | 2019-12-23 06:11 | NUR ---
abdominal dsg removed. clips intact. incision well approximated. no drainage noted.
--- NOTE | 2019-12-23 07:53 | Postpartum Progress Note ---
Note Note Day # 1 Subjective: Patient is without complaints. Ambulating, voiding. Tolerating a regular diet without nausea or vomiting. Normal lochia. Pain is well controlled with oral pain medications. Objective: Physical Exam: General - Alert and oriented, no apparent distress Abdomen - Soft, appropriately tender to palpation, non-distended, fundus firm at umbilicus Extremities - no edema, negative Kaitlin's bilaterally Incision- c/d/i meagan in place Assessment: POD 1 RLTCS BMI 52 AMA GDMA2-monitoring pp blood sugars GHTN Plan: Routine care. Encourage breast feeding. Encourage ambulation. Ferrous sulfate supplementation. Starting on Labetalol 200 mg bid Plan for discharge tomorrow Vitals - Labs Vital Signs - I&O Vital Signs Date Time Temp Pulse Resp B/P (MAP) Pulse Ox O2 Delivery O2 Flow Rate FiO2 12/23/19 04:20 36.6 77 16 161/96 (117) 97 Room Air 12/22/19 23:13 36.5 78 16 141/79 (99) 97 Room Air 12/22/19 20:06 36.5 73 16 143/83 (103) 98 Room Air 12/22/19 16:12 36.8 60 18 155/85 (108) 97 Room Air 12/22/19 12:45 36.0 70 18 145/88 (107) 100 Room Air 12/22/19 10:30 36.0 64 18 160/86 (110) 100 Room Air 12/22/19 10:00 36.5 70 20 156/87 (110) 97 Room Air 12/22/19 09:51 Room Air 12/22/19 09:15 36.0 18 146/96 (113) 99 Room Air 12/22/19 09:00 35.9 16 135/100 (112) 100 Room Air 12/22/19 08:45 36.0 16 144/94 (111) 99 Room Air 12/22/19 08:24 36.8 16 127/81 (96) 97 Room Air I & O 12/23/19 07:00 Intake Total 3900 ml Output Total 2875 ml Balance 1025 ml Labs Laboratory Tests 12/22/19 15:52: Glucometer 85 12/22/19 20:17: Glucometer 120H 12/23/19 05:22: White Blood Count 7.8, Red Blood Count 3.88L, Hemoglobin 11.2L, Hematocrit 34L, Mean Corpuscular Volume 88, Mean Corpuscular Hemoglobin 29, Mean Corpuscular Hemoglobin Concent 33, Red Cell Distribution Width 14.2, Platelet Count 179, Mean Platelet Volume 11.6H, Neutrophils (%) (Auto) 64, Lymphocytes (%) (Auto) 27, Monocytes (%) (Auto) 7, Eosinophils (%) (Auto) 1, Basophils (%) (Auto) 0, Neutrophils # (Auto) 5.0, Lymphocytes # (Auto) 2.1, Monocytes # (Auto) 0.6, Eosinophils # (Auto) 0.1, Basophils # (Auto) 0.0 KAMRYN MCKEON DO December 23, 2019 07:53
[2019-12-23] MEDS ORDERED: ENOXAPARIN 40 MG/0.4 ML (LOVENOX) SYR SQ SCH (08:00)
[2019-12-23] MEDS: DOCUSATE SODIUM 100 MG (COLACE) CAP PO SCH ×2 (08:30→20:12)
[2019-12-23] MEDS: ENOXAPARIN 60 MG/0.6 ML (LOVENOX) SYR SC SCH ×2 (08:31→20:14)
[2019-12-23] MEDS: LABETALOL 200 MG (NORMODYNE) TAB PO SCH ×2 (08:31→20:12)
[2019-12-23] MEDS: HYDROcodone/APAP 5 MG/325 MG (LORTAB) TAB PO PRN (08:31)
[2019-12-23 08:35] VITALS: BP 143/89
--- NOTE | 2019-12-23 10:24 | Anesthesia-Regional Post-Op ---
Regional Patient Condition Mental Status: Alert, Oriented x3 Circulation: Same as Pre-Op Headache: Absent Sensation: Full Recovery Motor Block: Absent Post Op Complications Complications None Follow Up Care/Instructions Patient Instructions None needed. Anesthesia/Patient Condition Patient is doing well, no complaints, stable vital signs, no apparent adverse anesthesia problems. No complications reported per nursing. EL SAMUEL CRNA December 23, 2019 10:24
[2019-12-23] MEDS: IBUPROFEN 600 MG (MOTRIN) TAB PO SCH ×3 (11:05→22:53)
[2019-12-23 15:30] VITALS: BP 146/83
--- NOTE | 2019-12-23 20:15 | NUR ---
pt sitting in bed. assessment completed. s/o at bedside. pt denies any needs at this time. will continue to monitor.
[2019-12-23 20:49] VITALS: BP 148/87
[2019-12-24 01:44] VITALS: BP 137/75
[2019-12-24] MEDS: IBUPROFEN 600 MG (MOTRIN) TAB PO SCH (05:25)
--- NOTE | 2019-12-24 08:55 | Postpartum Progress Note ---
Note Note Day # 2 Subjective: Patient is without complaints. Ambulating, voiding. Tolerating a regular diet without nausea or vomiting. Normal lochia. Pain is well controlled with oral pain medications. Objective: Physical Exam: General - Alert and oriented, no apparent distress Abdomen - Soft, appropriately tender to palpation, non-distended, fundus firm at umbilicus Extremities - no edema, negative Kaitlin's bilaterally Incision- c/d/i Assessment: POD 2 RLTCS BS control inconsistent BMI 52 AMA GHTN Plan: Routine care. Encourage breast feeding. Encourage ambulation. Ferrous sulfate supplementation. Plan for discharge today, on Labetalol, and considering low dose glyburide. Vitals - Labs Vital Signs - I&O Vital Signs Date Time Temp Pulse Resp B/P (MAP) Pulse Ox O2 Delivery O2 Flow Rate FiO2 12/24/19 01:44 36.5 82 18 137/75 (95) Room Air 12/23/19 20:49 36.8 77 18 148/87 (107) Room Air 12/23/19 15:30 36.6 79 18 146/83 (104) Room Air Labs Microbiology 12/22/19 MRSA Screen - Final, Complete MRSA not isolated KAMRYN MCKEON DO December 24, 2019 08:55
[2019-12-24] MEDS ORDERED: LABE200T7 PO (08:57)
[2019-12-24] MEDS ORDERED: GLYB1.253 PO (08:57)
[2019-12-24 09:16] VITALS: BP 147/83
[2019-12-24] MEDS: LABETALOL 200 MG (NORMODYNE) TAB PO SCH (09:16)
[2019-12-24] MEDS: DOCUSATE SODIUM 100 MG (COLACE) CAP PO SCH (09:16)
[2019-12-24] MEDS: ENOXAPARIN 60 MG/0.6 ML (LOVENOX) SYR SC SCH (09:16)
--- NOTE | 2019-12-24 09:16 | NUR ---
AM shift assessment completed and vital signs obtained, see interventions. Dr. Graf in to see patient. New orders received. Scheduled Colace, Labetalol, and SC Lovenox administered; see EMAR. TDAP administered, see EMAR.
--- NOTE | 2019-12-24 09:19 | NUR ---
FSBS obtained (2hr PP): 116 mg/dL
--- NOTE | 2019-12-24 12:55 | NUR ---
Discharge instructions and medications reviewed with patient both written and verbally. Patient verbalizes understanding and questions answered.
--- NOTE | 2019-12-24 13:26 | NUR ---
Patient discharged at this time and ambulated down to awaiting private vehicle accompanied by this RN. No signs or symptoms of distress noted.
== END 2019-12-24 13:26 | disposition home or self-care (01) | DRG 788 ==
LOC: LDRP 05:47
PROVIDERS: ADMIT Obstetrics & Gynecology; ATTEND Obstetrics & Gynecology
PROC: 10D00Z1 Extraction of Products of Conception, Low, Open Approach (ICD-10-PCS; principal; 2019-12-22 07:40)
DX: O34.211 Maternal care for low transverse scar from previous cesarean delivery (principal); O24.429 Gestational diabetes mellitus in childbirth, unspecified control; O13.5 Gestational [pregnancy-induced] hypertension without significant proteinuria, complicating the puerperium; O99.214 Obesity complicating childbirth; E66.01 Morbid (severe) obesity due to excess calories; O99.824 Streptococcus B carrier state complicating childbirth; Z3A.38 38 weeks gestation of pregnancy; Z37.0 Single live birth; Z79.84 Long term (current) use of oral hypoglycemic drugs; Z87.891 Personal history of nicotine dependence; Z23 Encounter for immunization
CPT/HCPCS: 36415; 80053; 81000; 82962; 85025; 86850; 86900; 86901; 87081; 90715; 94664

== ENCOUNTER 2022-06-29 06:02 | Day surgery (SDC) | payer BC, MEDICAID ==
[~2022-06-29] VITALS: Ht 162.5 cm; Wt 129.5 kg
[2022-06-29] VITALS (11 sets, daily range): BP systolic 136–158; BP diastolic 76–109
[~2022-06-29 06:02] MED LIST changes: +ACHD5005 PO; -CITRIC ACID/SOB CIT (BICITRA) 30 ML UDC ONE; +DOCU-239 PO; -FAMOTIDINE 20MG/2ML IV (PEPCID) ONE; +GLBR2.5T PO; +GLBR5T PO; +GLYB1.253 PO; -GLYB5TAB6 PO; +IBUP-844 PO; +LABE200T10 PO; -METOCLOPRAMIDE INJ 10 MG/2 ML (REGLAN) ONE; -ceFAZolin 2 GM IV Premixed 50 ML ONE
[2022-06-29] MEDS: LACTATED RINGERS 1,000 ML IV PRN ×2 (06:25→07:19)
[2022-06-29 06:40] LABS: BASOPHILS % (AUTO) 0 % (0-10); EOSINOPHILS # (AUTO) 0.1 10^3/uL (0.0-0.3); EOSINOPHILS % (AUTO) 2 % (0-10); HEMATOCRIT 42 % (35-52); HEMOGLOBIN 14.2 g/dL (11.5-16.0); LYMPHOCYTES % (AUTO) 29 % (12-44); MEAN CORPUSCULAR HEMOGLOBIN 29 pg (25-34); MEAN CORPUSCULAR HGB CONC 34 g/dL (32-36); MEAN CORPUSCULAR VOLUME 87 fL (80-99); MEAN PLATELET VOLUME 10.4 fL (9.0-12.2); MONOCYTES # (AUTO) 0.4 10^3/uL (0.0-1.0); MONOCYTES % (AUTO) 6 % (0-12); NEUTROPHILS # (AUTO) 4.2 10^3/uL (1.8-7.8); NEUTROPHILS % (AUTO) 62 % (42-75); PLATELET COUNT 219 10^3/uL (130-400); WHITE BLOOD COUNT 6.8 10^3/uL (4.3-11.0)
[2022-06-29] MEDS ORDERED: BUPIVACAINE 0.25% 30 ML (SENSORCAINE) VIAL ONE (06:52)
[2022-06-29] MEDS ORDERED: proPOfol 200 MG/20 ML (DIPRIVAN) VIAL IV ONE (06:59)
[2022-06-29] MEDS ORDERED: fentaNYL INJ 100 MCG/2 ML AMP ONE (06:59)
[2022-06-29] MEDS ORDERED: SEVOFLURANE (ULTANE) 15 ML INHAL SOLN ONE (06:59)
[2022-06-29] MEDS ORDERED: LIDOCAINE PF 2% 5 ML (XYLOCAINE) VIAL ONE (06:59)
[2022-06-29] MEDS ORDERED: ONDANSETRON 4 MG/2 ML (SDV) Z0FRAN ONE (06:59)
[2022-06-29] MEDS ORDERED: MIDAZOLAM 2 MG/2 ML (VERSED) VIAL ONE (07:00)
[2022-06-29] MEDS ORDERED: ROCURONIUM 10 MG/ML 5 ML SYRINGE IV ONE (07:06)
--- NOTE | 2022-06-29 07:18 | History & Physical-Surgical ---
HPO-Surgical History of Present Illness Chief Complaint: Missed Ab Diagnosis/Surgical Indication: Arrest of dilatation, CPD, Obesity, PreE, Macrosomia, GDMA2 Procedure: SUCTION D&C Date of Surgery: Jun 29, 2022 Weight (Pounds): 292 Height (Feet): 5 Height (Inches): 4.00 Allergies and Home Medications Allergies Coded Allergies: No Known Drug Allergies (Unverified , 10/15/10) Patient Home Medication List Home Medication List Reviewed: Yes Docusate Sodium (Dok) 100 Mg Capsule, 100 MG PO BID PRN for CONSTIPATION-1ST LINE Prescribed by: KAMRYN MCKEON on 12/22/19 0728 Famotidine (Famotidine) 40 Mg Tablet, 40 MG PO HS, (Reported) Entered as Reported by: MARY ANN DUMONT on 12/14/191647 Ferrous Sulfate (Ferrous Sulfate) 325 Mg Tablet.dr, 325 MG PO DAILY, (Reported) Entered as Reported by: MARY ANN DUMONT on 12/14/191647 Glyburide (Glyburide) 1.25 Mg Tablet, 1.25 MG PO BID Prescribed by: KAMRYN MCKEON on 12/24/19 0857 Hydrocodone/Acetaminophen (Hydrocodone-Acetamin 5-325 mg) 1 Each Tablet, 1-2 TAB PO Q6HR PRN for PAIN-MODERATE (5-7) Prescribed by: KAMRYN MCKEON on 12/22/19727 Ibuprofen (Ibu) 600 Mg Tablet, 600 MG PO Q6HR Prescribed by: KAMRYN MCKEON on 12/22/19 0728 Labetalol HCl (Labetalol HCl) 200 Mg Tablet, 200 MG PO BID Prescribed by: KAMRYN MCKEON on 12/24/19 0857 Hfq229/Iron Fumarate/FA/Dss ( 19 Tablet) 1 Each Tablet, 1 EACH PO DAILY, (Reported) Entered as Reported by: MARY ANN DUMONT on 12/14/19 164 Past Apeqaug-Lngavu-Tiwrbp Hx Patient Social History Smoking Status: Never a Smoker Recent Hopitalizations: No Immunizations Up To Date Tetanus Booster (TDap): Less than 5yrs Seasonal Allergies Seasonal Allergies: No Surgeries Yes Respiratory No Cardiovascular No Neurological No Reproductive System Hx Reproductive Disorders: No Genitourinary No Gastrointestinal Yes Gastroesophageal Reflux Musculoskeletal No Endocrine History of Endocrine Disorders: Yes (gestational DM) HEENT History of HEENT Disorders: No Hearing Impairment: Denies Cancer No Psychosocial History of Psychiatric Problem: No Integumentary History of Skin or Integumenta: No Blood Transfusions History of Blood Disorders: No Adverse Reaction to a Blood Tr: No Family Medical History Family Hx: Patient reports no known family medical history. Exam Vital Signs Vital Signs 06/29/22 06:25 Temp 36.1 Pulse 74 Resp 20 B/P (MAP) 143/109 (120) Pulse Ox 98 O2 Delivery Room Air Capillary Refill : Labs Laboratory Tests Test 06/29/22 06:25 Range/Units White Blood Count 6.8 4.3-11.0 10^3/uL Red Blood Count 4.83 3.80-5.11 10^6/uL Hemoglobin 14.2 11.5-16.0 g/dL Hematocrit 42 35-52 % Mean Corpuscular Volume 87 80-99 fL Mean Corpuscular Hemoglobin 29 25-34 pg Mean Corpuscular Hemoglobin Concent 34 32-36 g/dL Red Cell Distribution Width 12.2 10.0-14.5 % Platelet Count 219 130-400 10^3/uL Mean Platelet Volume 10.4 9.0-12.2 fL Immature Granulocyte % (Auto) 0 % Neutrophils (%) (Auto) 62 42-75 % Lymphocytes (%) (Auto) 29 12-44 % Monocytes (%) (Auto) 6 0-12 % Eosinophils (%) (Auto) 2 0-10 % Basophils (%) (Auto) 0 0-10 % Neutrophils # (Auto) 4.2 1.8-7.8 10^3/uL Lymphocytes # (Auto) 2.0 1.0-4.0 10^3/uL Monocytes # (Auto) 0.4 0.0-1.0 10^3/uL Eosinophils # (Auto) 0.1 0.0-0.3 10^3/uL Basophils # (Auto) 0.0 0.0-0.1 10^3/uL Immature Granulocyte # (Auto) 0.0 0.0-0.1 10^3/uL General Appearance: Alert, Oriented X3 HEENT: Atraumatic Respiratory: Clear to Auscultation Cardiovascular: Regular Rate Abdominal: Normal Bowel Sounds Neuro: Normal Gait Psych/Mental Status: Mental Status NL Assessment/Plan Assessment and Plan 36 yo with Missed Ab Admission Diagnosis Diagnosis: Missed Ab Plan: Suction D and C Admission Status: Other (Same Day Surgery) KAMRYN MCKEON DO Jun 29, 2022 07:18
--- NOTE | 2022-06-29 07:22 | Discharge Inst-Women's Service ---
Discharge Inst-Women's Serv Depart Medication/Instructions New, Converted or Re-Newed RX: Transmitted to Pharmacy Final Diagnosis suction d and c Problems Reviewed?: Yes Consults/Follow Up Additional Follow Up: Yes Orders/Referrals Dr. Mckeon in 1-2 weeks Activity Activity: Activity as Tolerated Driving Instructions: No Driving for 1 Week NO SMOKING: NO SMOKING Nothing Inside Vagina: No Douching, No Wann, No Tampons Diet Discharge Diet: No Restrictions Symptoms to Report to : Bleeding Excessive, Pain Increased, Fever Over 101 Degrees F, Vaginal Bleeding Increase, Questions/Concerns For Any Problems or Questions: Contact Your Physician KAMRYN MCKEON DO Jun 29, 2022 07:22
[2022-06-29] MEDS ORDERED: IBUP-1773 PO (07:23)
[2022-06-29] MEDS ORDERED: ACHD5005 PO (07:23)
[2022-06-29] MEDS ORDERED: KETOROLAC 30 MG/ML VIAL IVP ONE (07:30)
[2022-06-29] MEDS ORDERED: D5 LR IV SOLUTION 1,000 ML IV SCH (07:30)
[2022-06-29] MEDS ORDERED: ONDANSETRON 4 MG/2 ML (SDV) Z0FRAN IVP PRN ×2 (07:30→08:15)
[2022-06-29] MEDS ORDERED: HYDROcodone/APAP 5 MG/325 MG (LORTAB) TAB PO PRN (07:30)
[2022-06-29] MEDS ORDERED: SUGAMMADEX 500 MG/5 ML VIAL (BRIDION) IV ONE (07:32)
[2022-06-29] MEDS ORDERED: KETOROLAC 30 MG/ML VIAL ONE (07:44)
[2022-06-29] MEDS ORDERED: HYDROmorphone 2 MG/ML VIAL (DILAUDID) IV ONE (08:15)
--- NOTE | 2022-06-29 11:17 | Anesthesia-General Post-Op ---
General Patient Condition Mental Status/LOC: Same as Preop Cardiovascular: Satisfactory Nausea/Vomiting: Absent Respiratory: Satisfactory Pain: Controlled Complications: Absent Post Op Complications Complications None Follow Up Care/Instructions Patient Instructions None needed. Anesthesia/Patient Condition Patient Condition Patient is doing well, no complaints, stable vital signs, no apparent adverse anesthesia problems. No complications reported per nursing. D/C home per [facility] [place] Criteria: Yes SHUN CHU CRNA Jun 29, 2022 11:17
--- NOTE | 2022-06-29 18:59 | OPERATIVE REPORT ---
PREOPERATIVE DIAGNOSIS: A 36-year-old female with missed AB approximately 8 weeks, pole. POSTOPERATIVE DIAGNOSIS: A 36-year-old female with missed AB approximately 8 weeks, pole. PROCEDURE: Suction D and C. SURGEON: Dr. Kamryn Mckeon. ANESTHESIA: General endotracheal. ESTIMATED BLOOD LOSS: 300 mL URINE OUTPUT: 100 mL clear at the end of the procedure. FLUIDS: 1200 mL lactated Ringer's solution. FINDINGS: There is a moderate amount of products of conception, grossly normal-appearing external genitalia. SPECIMENS SENT: Products of conception. INDICATIONS FOR PROCEDURE: This 36-year-old female is the patient who had her visit last week to establish care and to determine viability. There was no cardiac activity noted on transvaginal ultrasound as well as an 8-9 week measuring crown rump length fetus. Due to no cardiac activity, discussed with the patient possibility of miscarriage at home versus proceeding with suction D and C. She opted to proceed with suction D and C. Risks of the procedure were discussed with the patient in detail. After all of her questions were answered pertaining to risks and recovery from the D and C, consent was obtained in the preoperative area, the patient was taken to the operating room. OPERATIVE REPORT IN DETAIL. Once in the operating room, general anesthesia was found to be adequate. She was placed in dorsal lithotomy position, prepped and draped in normal sterile fashion. Timeout was performed. A weighted speculum was inserted in the patient's vagina. Right angle retractor was used to visualize cervix which was grasped at 12 o'clock position using a long Allis clamp. I then gently sound the uterine cavity, depth was found to be approximately 8-9 cm. I then selected an #8 curved rigid Romulo suction curette device and gently dilate the cervix using Hanks dilators to allow placement of the suction curette. Once the suction curette was placed within the endometrial cavity, attached Aurora suction and applied suction to maximum pressure of 60 mmHg, at which point I methodically rotated the Romulo suction curette throughout the endometrial cavity clearing all products of conception. This was done on several passes. A gentle sharp curettage was performed with a medium size endometrial curette and there is no active bleeding noted after the third and final pass after which I removed all instruments from the patient's vagina. The patient tolerated the procedure well and was taken to the recovery area in stable condition. Lap and sponge count was correct at the end of the procedure. Instrument counts were correct as well as. Job ID: [id number] DocumentID: [id number] Dictated Date: 06/29/2022 10:42:37 Crisis Nurse Date: 06/29/2022 18:58:00 Dictated By: KAMRYN MCKEON DO
== END 2022-06-29 10:00 | disposition home or self-care (01) ==
LOC: SDC 06:02
PROVIDERS: ATTEND Obstetrics & Gynecology
DX: O02.1 Missed abortion (principal); E66.01 Morbid (severe) obesity due to excess calories; Z68.42 Body mass index [BMI] 45.0-49.9, adult
CPT/HCPCS: 36415; 85025; 86850; 86900; 86901; 87081